=== PATIENT | male | born 1945 | race Caucasian/White ===

== ENCOUNTER → 2018-03-14 11:17 | Outpatient (CLI) | payer MEDICARE, OTHER, SELFPAY ==
--- NOTE | 2018-03-14 11:47 | RAD_ITS ---
STUDY: X-RAY - ABDOMEN/PELVIS REASON FOR EXAM: Male, 72 years old. Pain history of stones TECHNIQUE: Two AP supine views of the abdomen and pelvis. COMPARISON: March 14, 2018 CT scan abdomen and pelvis September 05, 2013 KUB FINDINGS: The lung bases are mostly out of the [id number]. There is a moderate amount of colonic fecal material. There is no demonstrated free abdominal air. There are multiple stones within the left kidney. There are multiple stones in the right kidney. The partially distended appearance of the bladder. Normal soft tissue structures. There are diffuse degenerative changes of the visualized lumbar spine. RAD/Abdomen Single View IMPRESSION: Numerous stones in the left greater than right kidney. The stones appear to be similar in number but greater in size than the prior study September 05, 2013. There appear to be greater stones in the right kidney than on prior allowing for the overlying stool in the colon. Electronically Signed: Lynn Govea MD at 16:53 EDT Tel , Service support ,
[2018-03-14 12:26] LABS: PSA,Total - Annual Screen 4.67 ng/mL (0.00-4.00)
== END ==
PROVIDERS: Family Provider Family Medicine; PCP Family Medicine; Visit Provider Urology
DX: R10.9 Unspecified abdominal pain (principal); Z87.442 Personal history of urinary calculi; Z12.5 Encounter for screening for malignant neoplasm of prostate
CPT/HCPCS: 36415; 74018; 84153; G0103

== ENCOUNTER → 2018-03-14 12:27 | Outpatient (CLI) | payer MEDICARE, OTHER, SELFPAY ==
--- NOTE | 2018-03-14 12:32 | CT_ITS ---
STUDY: CT ABDOMEN AND PELVIS WITHOUT CONTRAST REASON FOR EXAM: Male, 72 years old. Right-sided abdomen pain x2 weeks. History of kidney stones with prior lithotripsy. RADIATION DOSAGE (If Supplied By Facility): CTDIvol = ( 6.66 ) mGy, DLP = ( 286.76 ) mGycm TECHNIQUE: Transaxial images were obtained from the dome of the diaphragm to the symphysis pubis without oral contrast, and without intravenous contrast. Sagittal and coronal images were reconstructed. Individualized dose optimization techniques were used for this CT. COMPARISON: Report only of CT of the abdomen and pelvis obtained August 26, 2012. FINDINGS: The visualized lung bases are remarkable only for mild bibasilar pleural-parenchymal fibrosis. The visualized portions of the heart are within normal limits. There are 2 numerous to count hypodensities throughout the liver. The largest is in the left hepatic lobe measuring approximately 1.4 cm in maximum dimension. Normal gallbladder and extrahepatic biliary system. Normal spleen. Normal pancreas. Normal bilateral adrenal glands. There are multiple calculi within the right renal collecting system. The largest measures 2.5 mm in maximum dimension on sequence 1002, image 61. There is a 6.4 x 4.4 mm calculi within the distal third right ureter seen best on sequence 1002, image 107. Multiple collecting system calculi are seen throughout the left kidney. The largest measures 7.1 cm in maximum dimension. There is a 5.2 cm ovoid low dense focus involving extending from the left renal midpole measuring water density. Normal visualized stomach. Normal small intestine. A few scattered uncomplicated diverticula are identified throughout the colon. There is non-visualization of the appendix. Normal abdominal aorta except for calcified plaque throughout the aortoiliac system. Normal inferior vena cava. Normal retroperitoneum. Normal urinary bladder. Normal abdominal wall. There is no acute osseous abnormality. There is no suspicious lytic or blastic osseous pathology. Diffuse spinal degenerative changes are evident. CT/Abdomen/Pelvis without Cont IMPRESSION: Bilateral nephrolithiasis. Moderate to high-grade obstruction of the distal third right ureter with a 6.4 x 4.4 mm calculi. There is moderate resultant right hydroureter. There is no hydronephrosis. Left renal cysts. Atherosclerotic peripheral vascular disease. Diverticulosis without evident diverticulitis. Too Numerous to count hepatic cysts versus small hemangiomas. Visualized lung bases with mild bibasilar pleural-parenchymal fibrosis. Electronically Signed: David Erwin MD at 14:06 EDT , Service support ,
== END ==
PROVIDERS: Family Provider Family Medicine; PCP Family Medicine; Visit Provider Urology
DX: N20.0 Calculus of kidney (principal); R10.9 Unspecified abdominal pain; Z87.442 Personal history of urinary calculi; Z12.5 Encounter for screening for malignant neoplasm of prostate
CPT/HCPCS: 36415; 74018; 74176; 84153; G0103

== ENCOUNTER 2018-03-18 13:34 | Day surgery (SDC) | payer MEDICARE, OTHER, SELFPAY ==
[2018-03-18 14:00] VITALS: BP 120/75; PULSE 67; RESP 16; TEMP 36.7; O2SAT 97; BMI 21.2
--- NOTE | 2018-03-18 15:44 | DCINST_ITS ---
Discharge Diet: Light diet - advance as tolerated Discharge Activity: Return to Normal Activity, May not drive while taking narcotic pain medications. Instructions: Treating Kidney Stones: Ureteroscopic Stone Removal Allergies/Adverse Reactions: Allergies No Known Allergies Allergy (Verified 03/15/18 09:51) Medications to take at Discharge Aspirin 81 mg PO DAILY 03/15/18 Cinnamon Bark [Cinnamon] 500 mg PO DAILY 03/15/18 Lisinopril [Zestril] 2.5 mg PO DAILY 03/15/18 Metoprolol Tartrate 25 mg PO DAILY 03/15/18 Saw [place] 400 mg PO DAILY 03/15/18 Tamsulosin HCl [Flomax] 0.4 mg PO DAILY 03/15/18 Vitamin B Complex 3 each PO DAILY 03/15/18 Primary Care Physician: George Angulo MD [Primary Care Provider] - Please Follow Up With: Bryn Blackwell MD When: WednesdayMarch 23 at 10:30 am, no xray needed, to remove stent
[2018-03-18 16:32] VITALS: BP 120/75; BP 124/72; PULSE 90; RESP 16; TEMP 36.2; O2SAT 98
--- NOTE | 2018-03-18 16:32 | OP.PCM_ITS ---
Report of Operation Date of Procedure: 03/18/18 Pre-Operative Diagnosis: Right ureteral calculi Post-Operative Diagnosis: Same Surgery/Procedure Performed:: Cystoscopy, balloon dilation of the right ureter, right retrograde, right ureteroscopy laser of stone and stent placement. Description of Surgical Findings:: 72-year-old male who has a stone in the distal right ureter taken today to surgery for removal of the stone and laser and stent placement. 72-year-old is taken to the operating room after smooth induction of general anesthesia he was placed supine on the table the legs in stirrups. the urethra penis and testicles were prepped and draped in usual sterile fashion. I went into the bladder with a 21 Upper Sorbian rigid cystourethroscope the entire length of the urethra is normal the prostatic urethra is normal the sphincter was normal prostate slightly enlarged small median lobe small bilateral hypertrophy inside the bladder mild trabeculation no tumors or stones recognized. left and right ureteral orifice are normal. I cannulated the right ureteral orifice with a Glidewire and advanced a wire up could feel the wire hit the stone and go past it I then advanced the balloon dilator balloon dilated the distal ureter with a 15 Upper Sorbian by 10 cm balloon dilator. after dilating the distal ureter then I went into the ureter with the flexible ureteroscope over the wire pulled the wire out and then encountered the stone in the mid ureter and started lasering the stone the stone. the stone was fairly impacted lots of inflammation the chen of the ureter was able to laser the stone free and the stone fragments passed down as the stone fragments came out of the ureter I did go back in the ureter with the flexible ureteroscope was able to then go back up lasered some more stones and then was able to get air past the area of inflammation where the stone was stuck. got into the more proximal ureter lasered some more stones there when all the way up to the kidney inspected the upper pole midpole lower pole the kidney no other fragments are seen work my way down the ureter past the area of severe inflammation of all the stones the past worked my way down the ureter and then slowly lasered some more tiny fragments and then worked my way out and all the stones and passed into the bladder. Put a ureteral catheter up the right ureter did a right retrograde pyelogram and then put a wire up in the right side and then over the wire place a stent seen on image and then the stent was in good position from the kidney to the bladder and left the string and the stent for extraction will extract the stent next week. Patient's anesthetic was being reversed and he will go home with antibiotics and pain medicine. Type of Anesthesia:: General Drains: stent right side - Admit VTE Documentation VTE Present on Admission: No VTE Mechan Device Prophylaxis: SCD's VTE Pharm Prophylaxis ordered?: No Reason prophylaxis not ordered:: Treatment Not Indicated
[2018-03-18 16:45] VITALS: BP 120/75; BP 131/89; PULSE 88; RESP 16; O2SAT 100
[2018-03-18 16:56] VITALS: BP 120/75; BP 122/75; PULSE 85; RESP 16; TEMP 36.1; O2SAT 97
[2018-03-18 17:32] VITALS: BP 120/75
== END 2018-03-18 17:43 | disposition home or self-care (01) ==
LOC: SDC 13:34 → AC 13:35
PROVIDERS: Family Provider Family Medicine; PCP Family Medicine; Visit Provider Urology
PROC: 0TJ98ZZ Inspection of Ureter, Via Natural or Artificial Opening Endoscopic (ICD-10-PCS; CPT 52352; principal; 2018-03-18 15:10)
DX: N20.1 Calculus of ureter (principal); N40.1 Benign prostatic hyperplasia with lower urinary tract symptoms; R31.21 Asymptomatic microscopic hematuria; I10 Essential (primary) hypertension; K58.9 Irritable bowel syndrome, unspecified; Z79.82 Long term (current) use of aspirin; Z79.899 Other long term (current) drug therapy; Z87.442 Personal history of urinary calculi; Z86.718 Personal history of other venous thrombosis and embolism
CPT/HCPCS: 52356; 76000; J7120; C1726; C1769; C2617

== ENCOUNTER 2018-04-25 14:15 | Inpatient (IN) | payer MEDICARE, OTHER, SELFPAY ==
--- NOTE | 2018-04-25 14:15 | DT_ITS ---
This patient was seen during an EMR downtime April 25, 2018 - May 02, 2018. This patient may have a combination of paper and electronic documentation or all paper documentation. All documentation is viewable within the e-chart portion of [facility] for each patient visit.
--- NOTE | 2018-04-25 15:15 | CT_ITS ---
STUDY: CT ABDOMEN AND PELVIS WITHOUT CONTRAST REASON FOR EXAM: Male, 72 years old. Flank pain RADIATION DOSAGE (If Supplied By Facility): CTDIvol = ( 10.48 ) mGy, DLP = ( 498.13 ) mGycm TECHNIQUE: Transaxial images were obtained from the dome of the diaphragm to the symphysis pubis without oral contrast, and without intravenous contrast. Sagittal and coronal images were reconstructed. Individualized dose optimization techniques were used for this CT. COMPARISON: None. FINDINGS: The visualized lung bases are unremarkable. The visualized portions of the heart are within normal limits. Liver is unremarkable aside from scattered subcentimeter simple cysts. Normal gallbladder and extrahepatic biliary system. Normal spleen. Normal pancreas. Normal bilateral adrenal glands. There are punctate nonobstructing cortical medullary junction stones in the right kidney along with a 2 cm cyst in the lower pole. Left kidney is enlarged, demonstrates multiple scattered cortical medullary junction calcifications as well as scattered simple cysts, largest in the lower pole measures 5 cm. There is hydronephrosis and hydroureter with a minimal amount of perinephric and periureteral inflammatory stranding. Findings due to 2 separate stones in the proximal left ureter, larger measures 6 mm, smaller 4 mm. Normal visualized stomach. Normal small intestine. There are multiple colonic diverticula consistent with diverticulosis. There is non-visualization of the appendix. Normal abdominal aorta. Normal inferior vena cava. Normal retroperitoneum. Normal urinary bladder. There is prostate enlargement which measures 5.5 x 5.4 x 4.4 cm. Normal abdominal wall. There are diffuse degenerative changes of the visualized lumbar spine. CT/Abdomen/Pelvis without Cont IMPRESSION: 2 separate calcifications noted within the proximal left ureter, larger measures 5 mm, smaller 4 mm. These are causing hydronephrosis, hydroureter, perinephric and periureteral inflammatory stranding. Bilateral nonobstructing nephrolithiasis The lateral simple renal cysts Enlarged prostate Scattered subcentimeter hepatic cysts Electronically Signed: Jori Guevara MD at 17:18 EDT , Service support ,
--- NOTE | 2018-04-26 04:40 | RAD_ITS ---
STUDY: X-RAY - ABDOMEN/PELVIS REASON FOR EXAM: Male, 72 years old. Left-sided kidney stone TECHNIQUE: Two AP supine views of the abdomen and pelvis. This study is dated April 26, 2018 and presented for interpretation May 02, 2018 COMPARISON: April 25, 2018 CT scan abdomen and pelvis FINDINGS: The lung bases are out of the [id number]. There is an unremarkable bowel gas pattern. There is no demonstrated free abdominal air. There are multiple stones in the left kidney the largest of which measures 6.5 mm in the lower pole. Overlying the left psoas muscle at the level left side L3 there is a 5.4 mm stone. This likely corresponds to the stone and/or stones that were seen on the April 25, 2018 CT scan of the abdomen and pelvis. There are phleboliths suggested in the pelvis. There are multiple right side punctate renal stones largest of which measures 2 mm. Normal soft tissue structures. There are diffuse degenerative changes of the visualized lumbar spine. RAD/Abdomen Single View (Portable) IMPRESSION: Multiple bilateral renal stones. Left ureteral stone at the level of left-sided L3 overlying the psoas muscle measuring 5.4 mm. Electronically Signed: Lynn Govea MD at 22:15 EDT Tel , Service support ,
--- NOTE | 2018-04-27 11:56 | EKG12_ITS ---
Test Reason : AM EKG Blood Pressure : / mmHG Vent. Rate : 071 BPM Atrial Rate : 071 BPM P-R Int : 134 ms QRS Dur : 084 ms QT Int : 358 ms P-R-T Axes : 062 007 060 degrees QTc Int : 389 ms Normal sinus rhythm Septal infarct , age undetermined Abnormal ECG Confirmed by SADE ALFARO, SHOSHANA ([id number]), index editor CONSUELO BRADLEY ([id number]) on 05/06/2018 1:58:14 PM Referred By: Confirmed By:SHOSHANA STUART MD
[2018-04-28 12:27] LABS: Anion Gap 12 (5-15); BUN 25 mg/dL (7-18); BUN/Creat Ratio 15.5 RATIO (10-20); Calcium,Total 9.1 mg/dL (8.5-10.1); Chloride 105 mmol/L (98-107); Creatinine, Serum 1.61 mg/dL (0.70-1.30); EST Glomerular Filtration Rate 45 mL/min (>60); Est Glom Filt Rate - Afr Amer 55 mL/min (>60); Glucose 166 mg/dL (74-106); Potassium 4.3 mmol/L (3.5-5.1); Sodium Level 138 mmol/L (136-145)
[2018-04-29 10:50] LABS: Hemoglobin 14.2 g/dl (13.0-16.5); Mean Corp Hgb Conc 33.8 g/gl (32-36); Mean Corpuscular Hgb 31.6 pg (27.0-32.0); Mean Corpuscular Volume 93.5 fL (80-94); Mean Platelet Vol. 10.8 fl (6.2-12.0); Platelet Count 213 K/mm3 (150-450); RBC Distribution Width CV 12.9 % (11.6-14.6); Red Blood Count 4.49 M/mm3 (4.6-6.2); Scan Indicated on CBC? Y/N NO
== END 2018-04-27 14:41 | disposition home or self-care (01) | DRG 670 ==
PROVIDERS: Urology; Admitting Provider Urology; Family Provider Family Medicine; PCP Family Medicine; Visit Provider Urology
PROC: 0TC78ZZ Extirpation of Matter from Left Ureter, Via Natural or Artificial Opening Endoscopic (ICD-10-PCS; CPT 50590; principal; 2018-04-27 15:40)
DX: N20.1 Calculus of ureter (principal); N40.0 Benign prostatic hyperplasia without lower urinary tract symptoms; N23 Unspecified renal colic; I10 Essential (primary) hypertension; G62.9 Polyneuropathy, unspecified; H91.90 Unspecified hearing loss, unspecified ear; Z87.442 Personal history of urinary calculi
CPT/HCPCS: 36415; 74018; 74176; 80048; 85027; 93005; J7030; A4216; C1769; C2617; J0744; J2405

== ENCOUNTER → 2018-05-02 11:59 | Outpatient (CLI) | payer MEDICARE, OTHER, SELFPAY ==
--- NOTE | 2018-05-02 11:59 | DT_ITS ---
This patient was seen during an EMR downtime April 25, 2018 - May 02, 2018. This patient may have a combination of paper and electronic documentation or all paper documentation. All documentation is viewable within the e-chart portion of [facility] for each patient visit.
--- NOTE | 2018-05-02 12:29 | RAD_ITS ---
STUDY: X-RAY - ABDOMEN/PELVIS REASON FOR EXAM: Male, 72 years old. Left side kidney stone. Stent. TECHNIQUE: Two AP supine views of the abdomen and pelvis. COMPARISON: Abdomen, April 26, 2018. FINDINGS: Normal visualized lung bases. There is an unremarkable bowel gas pattern. There is no demonstrated free abdominal air. The visualized liver, spleen and kidneys are grossly normal in size and morphology. There is a left ureteral stent. There are calcifications throughout the left kidney. The largest cluster measures 2.2 x 0.6 cm and lies in the lower pole. Calcifications are also seen along the course of the stent just lateral to the L4 vertebral body. There is no calcifications overlying the right kidney. Normal soft tissue structures. There are diffuse degenerative changes of the visualized lumbar spine. RAD/Abdomen Single View IMPRESSION: 1. Left ureteral stent with left ureteral calculus. 2. Stable left renal calculi. Electronically Signed: Nik Lyons DO at 16:22 EDT Tel [phone], Service support ,
== END ==
PROVIDERS: Family Provider Family Medicine; PCP Family Medicine; Visit Provider Urology
DX: N20.0 Calculus of kidney (principal)
CPT/HCPCS: 74018

== ENCOUNTER → 2018-05-16 12:51 | Outpatient (CLI) | payer MEDICARE, OTHER, SELFPAY ==
--- NOTE | 2018-05-16 12:54 | RAD_ITS ---
STUDY: X-RAY - ABDOMEN/PELVIS REASON FOR EXAM: Male, 72 years old. Left-sided kidney stone. Checkup. TECHNIQUE: Two AP supine views of the abdomen and pelvis. COMPARISON: May 02, 2018. FINDINGS: Normal visualized lung bases. There is an unremarkable bowel gas pattern. There is no demonstrated free abdominal air. The visualized liver, spleen and kidneys are grossly normal in size and morphology. The left ureteral stent is no longer present. There are calcifications overlying the left kidney. The largest, in the lower pole measures 7 mm. Normal soft tissue structures. There are diffuse degenerative changes of the visualized lumbar spine. RAD/Abdomen Single View IMPRESSION: 1. Absence of the left ureteral stent seen on the prior study. 2. Multiple left renal calculi. These appear stable. Electronically Signed: Nik Lyons DO at 8:48 EDT Tel [phone], Service support ,
== END ==
PROVIDERS: Family Provider Family Medicine; PCP Family Medicine; Visit Provider Urology
DX: N20.0 Calculus of kidney (principal)
CPT/HCPCS: 74018

== ENCOUNTER → 2018-11-01 09:20 | Outpatient (CLI) | payer MEDICARE, OTHER, SELFPAY ==
--- NOTE | 2018-11-01 09:47 | RAD_ITS ---
STUDY: X-RAY - ABDOMEN/PELVIS REASON FOR EXAM: Male, 73 years old. Right flank pain. History of bilateral kidney stones. TECHNIQUE: Single AP view of the abdomen / pelvis. COMPARISON: 2 AP views of the abdomen and pelvis May 16, 2018; noncontrast CT abdomen pelvis April 25, 2018. FINDINGS: Non-visualized lung bases. There is an unremarkable bowel gas pattern. There is no demonstrated free abdominal air. Numerous small stones project along the periphery of the mid to lower left renal shadow. A few small calcifications also project over the lower pole of the right renal shadow, partially obscured by gas and fecal material in the bowel. The visualized liver and spleen are grossly normal in size and morphology. There are calcified phleboliths in the pelvis. There are stable degenerative changes of the visualized lumbar spine. RAD/Abdomen Single View IMPRESSION: Bilateral nephrolithiasis again noted. Nonspecific bowel gas pattern. Electronically Signed: Jori Wilkinson MD at 19:58 EST , Service support ,
--- OUTSIDE RECORDS SUMMARY | 2018-12-18 08:33 | XMS RPT_ITS ---
:1945 Author Organization [place] Support Name Relationship Address Phone [employer] Unavailable [address] + [place] [address] TERESA LOVING Unavailable [address] + [address] [place] [address] NOT GIVEN Unavailable Unavailable Unavailable TERESA LOVING Unavailable [address] + [place] [address] TERESA LOVING Unavailable [address] [place] [address] [employer] Unavailable [address] + [place] [address] TERESA LOVING Unavailable [address] + [address] [place] [address] [employer] Unavailable [address] + [place] [address] TERESA LOVING Unavailable [address] + [address] [place] [address] [employer] Unavailable [address] + [place] [address] TERESA LOVING Unavailable [address] + [address] [place] [address] [employer] Unavailable [address] + [place] [address] TERESA LOVING Unavailable [address] + [address] [place] [address] [employer] Unavailable [address] + [place] [address] TERESA LOVING Unavailable [address] + [address] [place] [address] [employer] Unavailable [address] + [place] [address] LOVING, TERESA Unavailable [address] + [address] [place] [address] [employer] Unavailable [address] + [place] [address] CRISTINA LOVINGKI Unavailable [address] + [place] [address] Care Team Providers Name Role Phone MD GEORGE GAXIOLA Attending Unavailable LV, SAIDA Trevino Admitting Unavailable LV, SAIDA Trevino Attending Unavailable LV, SAIDA Trevino Primary Care Unavailable Rosalva, Bryn Gaston Attending Unavailable Rosalva, Bryn Gaston Referring Unavailable Khalida, George Primary Care Unavailable Rosalva, Bryn Gaston Attending Unavailable Rosalva, Gen Referring Unavailable Khalida, George Primary Care Unavailable Rosalva, Bryn Gaston Attending Unavailable Rosalva, Gen Referring Unavailable Khalida, George Primary Care Unavailable Rosalva, Bryn Gaston Attending Unavailable Rosalva, Gen Referring Unavailable Khalida, George Primary Care Unavailable Rosalva, Gen Admitting Unavailable Rosalva, Bryn Gaston Attending Unavailable Khalida, Warren Primary Care Unavailable Rosalva, Bryn Gaston Attending Unavailable Rosalva, Gen Referring Unavailable Khalida, Warren Primary Care Unavailable Rosalva, Bryn Gaston Attending Unavailable Rosalva, Gen Referring Unavailable Khalida, Warren Primary Care Unavailable Moodispadavid, Juan Attending Unavailable White, Katerina Referring Unavailable PROBLEMS PROBLEMS DATE TYPE CONDITION / CODE ATTENDING STATUS SOURCE Unknown N20.0 - Calculus of Bryn Blackwell Active [place] 8 kidney / N20.0(ICD-10) [facility] Repository Principle Noninfective LV, 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 Trevino [facility] colitis, unspecified / Hospital K529(ICD-10) Repository Unknown R94.31 - Abnormal Moodispaw, Active [place] 8 electrocardiogram [facility] [ECG] [EKG] / Hospital R94.31(ICD-10) Repository Unknown I10 - Essential Moodispaw, Active [place] 8 (primary) hypertension [facility] / I10(ICD-10) Hospital Repository Unknown Z87.442 - Personal Bryn Blackwell Active [place] 8 history of urinary Alek [facility] calculi / Hospital Z87.442(ICD-10) Repository Admitting HyperlipidemiaKHALIDA MD Active [facility] 8 Diagnosis unspecified / GEORGE Hart E78.5(ICD-10) Repository PROCEDURES PROCEDURES No Procedure Records FoundRESULTS RESULTS ABDOMEN SINGLE VIEW Observed: 11/01/2018 Status: F Source: [place] 9:25 AM [facility] Imaging Services [address] [place] [address] Abdomen Single View MR#: [id number] Acct: [id number] Name: JUAN LOVING Rep #: [id number] : 1945 M 73 From: Oz Wilkinson MD PCP: George Gaxiola MD Status: REG CLI Study: Abdomen Single View Date of Exam: 11/01/18 Exam# [id number] Ordering Dr: Bryn Blackwell MD STUDY: X-RAY - ABDOMEN/PELVIS REASON FOR EXAM: Male, 73 years old. Right flank pain. History of bilateral kidney stones. TECHNIQUE: Single AP view of the abdomen / pelvis. COMPARISON: 2 AP views of the abdomen and pelvis May 16, 2018; noncontrast CT abdomen pelvis April 25, 2018. FINDINGS: Non-visualized lung bases. There is an unremarkable bowel gas pattern. There is no demonstrated free abdominal air. Numerous small stones project along the periphery of the mid to lower left renal shadow. A few small calcifications also project over the lower pole of the right renal shadow, partially obscured by gas and fecal material in the bowel. The visualized liver and spleen are grossly normal in size and morphology. There are calcified phleboliths in the pelvis. There are stable degenerative changes of the visualized lumbar spine. RAD/Abdomen Single View IMPRESSION: Bilateral nephrolithiasis again noted. Nonspecific bowel gas pattern. Electronically Signed: Jori Wilkinson MD at 19:58 EST , Service support , CC: Bryn Blackwell MD; George Gaxiola MD Security Operations Analyst: Signed ABDOMEN SINGLE VIEW Observed: 05/16/2018 Status: F Source: [place] 12:54 PM [facility]POSITORY [facility] Imaging Services [address] [place] [address] Abdomen Single View MR#: [id number] Acct: [id number] Name: JUAN LOVING Rep #: [id number] : 1945 M 72 From: Nik Lyons DO PCP: George Gaxiola MD Status: REG CLI Study: Abdomen Single View Date of Exam: 05/16/18 Exam# [id number] Ordering Dr: Bryn Blackwell MD STUDY: X-RAY - ABDOMEN/PELVIS REASON FOR EXAM: Male, 72 years old. Left-sided kidney stone. Checkup. TECHNIQUE: Two AP supine views of the abdomen and pelvis. COMPARISON: May 02, 2018. FINDINGS: Normal visualized lung bases. There is an unremarkable bowel gas pattern. There is no demonstrated free abdominal air. The visualized liver, spleen and kidneys are grossly normal in size and morphology. The left ureteral stent is no longer present. There are calcifications overlying the left kidney. The largest, in the lower pole measures 7 mm. Normal soft tissue structures. There are diffuse degenerative changes of the visualized lumbar spine. RAD/Abdomen Single View IMPRESSION: 1. Absence of the left ureteral stent seen on the prior study. 2. Multiple left renal calculi. These appear stable. Electronically Signed: Nik Lyons DO at 8:48 EDT Tel [phone], Service support , CC: Bryn Blackwell MD; George Gaxiola MD Security Operations Analyst: Signed DOWNTIME REPORT Observed: 05/12/2018 Status: F Source: [place] 2:25 PM [facility] Medical Records Department [address] [place] [address] Downtime Report MR#: [id number] Acct: [id number] Name: JUAN LOVING Rep #: [id number] : 1945 72 From: Jamal Bradley PCP: George Gaxiola MD Status: REG CLI This patient was seen during an EMR downtime April 25, 2018 - May 02, 2018. This patient may have a combination of paper and electronic documentation or all paper documentation. All documentation is viewable within the e-chart portion of [employer] for each patient visit. DOWNTIME REPORT Observed: 05/11/2018 Status: F Source: [place] 2:05 PM [facility] Medical Records Department [address] [place] [address] Downtime Report MR#: [id number] Acct: [id number] Name: JUAN LOVING Rep #: [id number] : 1945 72 From: Jamal Bradley MD PCP: George Gaxiola MD Status: DIS IN This patient was seen during an EMR downtime April 25, 2018 - May 02, 2018. This patient may have a combination of paper and electronic documentation or all paper documentation. All documentation is viewable within the e-chart portion of [employer] for each patient visit. 12 LEAD ELECTROCARDIOGRAM Observed: 05/09/2018 Status: F Source: [place] 8:56 AM [facility] Cardiovascular Services [address] [place] [address] 12 Lead EKG 04/27/18 0531 MR#: [id number] Acct: [id number] Name: JUAN LOVING Rep #: [id number] : 1945 72 From: Juan Stuart MD Attending Dr: Bryn Blackwell MD Status: DIS IN Ordering Dr: Bryn Blackwell MD Date: 04/27/18 Location: [facility] Sex: M C Admitted: 04/25/18 Test Reason : AM EKG Blood Pressure : / mmHG Vent. Rate : 071 BPM Atrial Rate : 071 BPM P-R Int : 134 ms QRS Dur : 084 ms QT Int : 358 ms P-R-T Axes : 062 007 060 degrees QTc Int : 389 ms Normal sinus rhythm Septal infarct , age undetermined Abnormal ECG Confirmed by JUAN STUART MD ([id number]), acquisition editor CONSUELO BRADLEY ([id number]) on 05/06/2018 1:58:14 PM Referred By: Confirmed By:JUAN STUART MD 05/06/18 1358 Date Juan Stuart MD CC: Bryn Blackwell MD; George Gaxiola MD Signed ABDOMEN SINGLE VIEW Observed: 05/02/2018 Status: F Source: [place] 12:29 PM [facility] REPOSITORY [facility] Imaging Services [address] [place] [address] Abdomen Single View MR#: [id number] Acct: [id number] Name: JUAN LOVING Rep #: [id number] : 1945 M 72 From: Nik Lyons DO PCP: George Gaxiola MD Status: REG CLI Study: Abdomen Single View Date of Exam: 05/02/18 Exam# [id number] Ordering Dr: Bryn Blackwell MD STUDY: X-RAY - ABDOMEN/PELVIS REASON FOR EXAM: Male, 72 years old. Left side kidney stone. Stent. TECHNIQUE: Two AP supine views of the abdomen and pelvis. COMPARISON: Abdomen, April 26, 2018. FINDINGS: Normal visualized lung bases. There is an unremarkable bowel gas pattern. There is no demonstrated free abdominal air. The visualized liver, spleen and kidneys are grossly normal in size and morphology. There is a left ureteral stent. There are calcifications throughout the left kidney. The largest cluster measures 2.2 x 0.6 cm and lies in the lower pole. Calcifications are also seen along the course of the stent just lateral to the L4 vertebral body. There is no calcifications overlying the right kidney. Normal soft tissue structures. There are diffuse degenerative changes of the visualized lumbar spine. RAD/Abdomen Single View IMPRESSION: 1. Left ureteral stent with left ureteral calculus. 2. Stable left renal calculi. Electronically Signed: Nik Lyons DO at 16:22 EDT Tel [phone], Service support , CC: Bryn Blackwell MD; George Gaxiola MD Security Operations Analyst: Signed ABDOMEN/PELVIS WITHOUT Observed: 04/28/2018 Status: F Source: [place] CONT 3:37 PM [facility] Imaging Services [address] [facility] [place] [address] Abdomen/Pelvis without Cont MR#: [id number] Acct: [id number] Name: LOVINGJUAN Rep #: [id number] : 1945 M 72 From: Oz Guevara MD PCP: George Gaxiola MD Status: DIS IN Study: Abdomen/Pelvis without Cont Date of Exam: 04/25/18 Exam# [id number] Ordering Dr: Juan Barbosa MD STUDY: CT ABDOMEN AND PELVIS WITHOUT CONTRAST REASON FOR EXAM: Male, 72 years old. Flank pain RADIATION DOSAGE (If Supplied By Facility): CTDIvol = ( 10.48 ) mGy, DLP = ( 498.13 ) mGycm TECHNIQUE: Transaxial images were obtained from the dome of the diaphragm to the symphysis pubis without oral contrast, and without intravenous contrast. Sagittal and coronal images were reconstructed. Individualized dose optimization techniques were used for this CT. COMPARISON: None. FINDINGS: The visualized lung bases are unremarkable. The visualized portions of the heart are within normal limits. Liver is unremarkable aside from scattered subcentimeter simple cysts. Normal gallbladder and extrahepatic biliary system. Normal spleen. Normal pancreas. Normal bilateral adrenal glands. There are punctate nonobstructing cortical medullary junction stones in the right kidney along with a 2 cm cyst in the lower pole. Left kidney is enlarged, demonstrates multiple scattered cortical medullary junction calcifications as well as scattered simple cysts, largest in the lower pole measures 5 cm. There is hydronephrosis and hydroureter with a minimal amount of perinephric and periureteral inflammatory stranding. Findings due to 2 separate stones in the proximal left ureter, larger measures 6 mm, smaller 4 mm. Normal visualized stomach. Normal small intestine. There are multiple colonic diverticula consistent with diverticulosis. There is non-visualization of the appendix. Normal abdominal aorta. Normal inferior vena cava. Normal retroperitoneum. Normal urinary bladder. There is prostate enlargement which measures 5.5 x 5.4 x 4.4 cm. Normal abdominal wall. There are diffuse degenerative changes of the visualized lumbar spine. CT/Abdomen/Pelvis without Cont IMPRESSION: 2 separate calcifications noted within the proximal left ureter, larger measures 5 mm, smaller 4 mm. These are causing hydronephrosis, hydroureter, perinephric and periureteral inflammatory stranding. Bilateral nonobstructing nephrolithiasis The lateral simple renal cysts Enlarged prostate Scattered subcentimeter hepatic cysts Electronically Signed: Jori Guevara MD at 17:18 EDT , Service support , CC: Juan Barbosa MD; George Gaxiola MD Security Operations Analyst: Signed ABDOMEN SINGLE VIEW Observed: 04/28/2018 Status: F Source: [place] (PORTABLE) 2:17 PM [facility] REPOS[facility]ORY [facility] Imaging Services [address] [place] [address] Abdomen Single View (Portable) MR#: [id number] Acct: [id number] Name: LOVINGJUAN Rep #: [id number] : 1945 M 72 From: Lynn Govea MD PCP: George Gaxiola MD Status: DIS IN Study: Abdomen Single View (Portable) Date of Exam: 04/26/18 Exam# [id number] Ordering Dr: Juan Barbosa MD STUDY: X-RAY - ABDOMEN/PELVIS REASON FOR EXAM: Male, 72 years old. Left-sided kidney stone TECHNIQUE: Two AP supine views of the abdomen and pelvis. This study is dated April 26, 2018 and presented for interpretation May 02, 2018 COMPARISON: April 25, 2018 CT scan abdomen and pelvis FINDINGS: The lung bases are out of the zqjoq-lu-xowk. There is an unremarkable bowel gas pattern. There is no demonstrated free abdominal air. There are multiple stones in the left kidney the largest of which measures 6.5 mm in the lower pole. Overlying the left psoas muscle at the level left side L3 there is a 5.4 mm stone. This likely corresponds to the stone and/or stones that were seen on the April 25, 2018 CT scan of the abdomen and pelvis. There are phleboliths suggested in the pelvis. There are multiple right side punctate renal stones largest of which measures 2 mm. Normal soft tissue structures. There are diffuse degenerative changes of the visualized lumbar spine. RAD/Abdomen Single View (Portable) IMPRESSION: Multiple bilateral renal stones. Left ureteral stone at the level of left-sided L3 overlying the psoas muscle measuring 5.4 mm. Electronically Signed: Lynn Govea MD at 22:15 EDT Tel , Service support , CC: Juan Barbosa MD; George Gaxiola MD Security Operations Analyst: Signed BASIC METABOLIC Collected: 04/25/2018 Status: F Source: [place] PROFILE (BMP) 3:15 PM [facility] REPOSITORY Order Comment: RESULT(S) PREVIOUSLY REPORTED ON MANUAL REQUISITION DURING DOWNTIME. TYPE CODE TESTS RESULT OUT OF RANGE REFERENCE UNITS LAB L501.0100 74-106 mg/dL High GLU 166 Result Comment: Fasting Glucose result greater than or equal to 126 mg/dL suggests DIABETES MELLITUS per A.D.A. criteria. Please note revised GLUCOSE reference range effective 2017. LAB L501.1000 7-18 mg/dL High BUN 25 LAB L501.1100 0.70-1.30 mg/dL High CREAT,SERUM 1.61 Result Comment: The validity of the calculated GFR AND GFRAA in patients over 70 years has not been determined. Clinical correlation is essential. LAB L501.1110 >60 mL/min Low EST GFR 45 LAB L501.1115 >60 mL/min Low EST GFR - AA 55 LAB L501.1300 10-20 RATIO Normal BUN/CRE 15.5 LAB L501.2200 8.5-10.1 mg/dL Normal CA 9.1 LAB L501.5300 136-145 mmol/L Normal NA 138 LAB L501.5600 3.5-5.1 mmol/L Normal K 4.3 LAB L501.5900 98-107 mmol/L Normal CL 105 LAB L501.6100 21.0-32.0 mmol/L Normal CO2 21.0 LAB L501.6200 5-15 Normal GAP 12 Performed By: #### L500.2500 #### [facility] [address] [place], [address] CBC-COMPLETE BLOOD CNT Collected: 04/25/2018 Status: F Source: [place] NO DIFF 2:40 AM [facility] REPOSITORY Order Comment: TESTED AT [facility] RESULT(S) PREVIOUSLY REPORTED ON MANUAL REQUISITION DURING DOWNTIME. . TYPE CODE TESTS RESULT OUT OF RANGE REFERENCE UNITS LAB L100.1000 4.4-11.0 K/mm3 High WBC 14.0 LAB L100.1200 4.6-6.2 M/mm3 Low RBC 4.49 LAB L100.1300 13.0-16.5 g/dl Normal HGB 14.2 LAB L100.1400 40-54 % Normal HCT 42.0 LAB L100.1500 80-94 fL Normal MCV 93.5 LAB L100.1600 27.0-32.0 pg Normal MCH 31.6 LAB L100.1700 32-36 g/gl Normal MCHC 33.8 LAB L100.1810 11.6-14.6 % Normal RDW CV 12.9 LAB L100.1820 35.1-43.9 fl Normal RDW SD 43.0 LAB L100.1900 150-450 K/mm3 Normal PLT 213 LAB L100.2000 6.2-12.0 fl Normal MPV 10.8 Performed By: #### L100.0500 #### [facility] [address] [place], [address] OPERATIVE REPORT Observed: 03/18/2018 Status: F Source: [place] 4:32 PM [facility] REPOS[facility]ORY [facility] Medical Records Department [address] [place] [address] Operative Report 03/18/18 1625 MR#: [id number] Acct: [id number] Name: JUAN LOVING Rep #: [id number] : 1945 72 From: Bryn Blackwell MD PCP: George Gaxiola MD Status: REG [facility] Y Location: [place] [address] Report of Operation Date of Procedure: 03/18/18 Pre-Operative Diagnosis: Right ureteral calculi Post-Operative Diagnosis: Same Surgery/Procedure Performed:: Cystoscopy, balloon dilation of the right ureter, right retrograde, right ureteroscopy laser of stone and stent placement. Description of Surgical Findings:: 72-year-old male who has a stone in the distal right ureter taken today to surgery for removal of the stone and laser and stent placement. 72-year-old is taken to the operating room after smooth induction of general anesthesia he was placed supine on the table the legs in stirrups. the urethra penis and testicles were prepped and draped in usual sterile fashion. I went into the bladder with a 21 Icelandic rigid cystourethroscope the entire length of the urethra is normal the prostatic urethra is normal the sphincter was normal prostate slightly enlarged small median lobe small bilateral hypertrophy inside the bladder mild trabeculation no tumors or stones recognized. left and right ureteral orifice are normal. I cannulated the right ureteral orifice with a Glidewire and advanced a wire up could feel the wire hit the stone and go past it I then advanced the balloon dilator balloon dilated the distal ureter with a 15 Icelandic by 10 cm balloon dilator. after dilating the distal ureter then I went into the ureter with the flexible ureteroscope over the wire pulled the wire out and then encountered the stone in the mid ureter and started lasering the stone the stone. the stone was fairly impacted lots of inflammation the chen of the ureter was able to laser the stone free and the stone fragments passed down as the stone fragments came out of the ureter I did go back in the ureter with the flexible ureteroscope was able to then go back up lasered some more stones and then was able to get air past the area of inflammation where the stone was stuck. got into the more proximal ureter lasered some more stones there when all the way up to the kidney inspected the upper pole midpole lower pole the kidney no other fragments are seen work my way down the ureter past the area of severe inflammation of all the stones the past worked my way down the ureter and then slowly lasered some more tiny fragments and then worked my way out and all the stones and passed into the bladder. Put a ureteral catheter up the right ureter did a right retrograde pyelogram and then put a wire up in the right side and then over the wire place a stent seen on image and then the stent was in good position from the kidney to the bladder and left the string and the stent for extraction will extract the stent next week. Patient's anesthetic was being reversed and he will go home with antibiotics and pain medicine. Type of Anesthesia:: General Drains: stent right side - Admit VTE Documentation VTE Present on Admission: No VTE Mechan Device Prophylaxis: SCD's VTE Pharm Prophylaxis ordered?: No Reason prophylaxis not ordered:: Treatment Not Indicated 03/18/18 1632 <Electronically signed by Bryn Blackwell MD> Date Bryn Blackwell MD CC: Bryn Blackwell MD; George Gaxiola MD Signed DISCHARGE INSTRUCTION Observed: 03/18/2018 Status: F Source: [place] 3:44 PM [facility] REPOS[facility]ORY [facility] Medical Records Department [address] [place] [address] Instructions for Home/Discharge Instructions 03/18/18 1543 MR#: [id number] Acct: [id number] Name: JUAN LOVING Rep #: [id number] : 1945 72 From: Bryn Blackwell MD PCP: George Gaxiola MD Status: REG [facility] Discharge Diet: Light diet - advance as tolerated Discharge Activity: Return to Normal Activity, May not drive while taking narcotic pain medications. Instructions: Treating Kidney Stones: Ureteroscopic Stone Removal Allergies/Adverse Reactions: Allergies No Known Allergies Allergy (Verified 03/15/18 09:51) Medications to take at Discharge Aspirin 81 mg PO DAILY 03/15/18 Cinnamon Bark [Cinnamon] 500 mg PO DAILY 03/15/18 Lisinopril [Zestril] 2.5 mg PO DAILY 03/15/18 Metoprolol Tartrate 25 mg PO DAILY 03/15/18 Saw [place] 400 mg PO DAILY 03/15/18 Tamsulosin HCl [Flomax] 0.4 mg PO DAILY 03/15/18 Vitamin B Complex 3 each PO DAILY 03/15/18 Primary Care Physician: George Gaxiola MD [Primary Care Provider] - Please Follow Up With: Bryn Blackwell MD When: WednesdayMarch 23 at 10:30 am, no xray needed, to remove stent 03/18/18 1544 <Electronically signed by Bryn Blackwell MD> Date Bryn Blackwell MD CC: George Gaxiola MD ABDOMEN/PELVIS WITHOUT Observed: 03/14/2018 Status: F Source: [place] CONT 12:32 PM [facility] Imaging Services [address] [place] [address] Abdomen/Pelvis without Cont MR#: [id number] Acct: [id number] Name: JUAN LOVING Jon Rep #: [id number] : 1945 M 72 From: David Erwin MD PCP: George Gaxiola MD Status: REG CLI Study: Abdomen/Pelvis without Cont Date of Exam: 03/14/18 Exam# [id number] Ordering Dr: Bryn Blackwell MD STUDY: CT ABDOMEN AND PELVIS WITHOUT CONTRAST REASON FOR EXAM: Male, 72 years old. Right-sided abdomen pain x2 weeks. History of kidney stones with prior lithotripsy. RADIATION DOSAGE (If Supplied By Facility): CTDIvol = ( 6.66 ) mGy, DLP = ( 286.76 ) mGycm TECHNIQUE: Transaxial images were obtained from the dome of the diaphragm to the symphysis pubis without oral contrast, and without intravenous contrast. Sagittal and coronal images were reconstructed. Individualized dose optimization techniques were used for this CT. COMPARISON: Report only of CT of the abdomen and pelvis obtained August 26, 2012. FINDINGS: The visualized lung bases are remarkable only for mild bibasilar pleural-parenchymal fibrosis. The visualized portions of the heart are within normal limits. There are 2 numerous to count hypodensities throughout the liver. The largest is in the left hepatic lobe measuring approximately 1.4 cm in maximum dimension. Normal gallbladder and extrahepatic biliary system. Normal spleen. Normal pancreas. Normal bilateral adrenal glands. There are multiple calculi within the right renal collecting system. The largest measures 2.5 mm in maximum dimension on sequence 1002, image 61. There is a 6.4 x 4.4 mm calculi within the distal third right ureter seen best on sequence 1002, image 107. Multiple collecting system calculi are seen throughout the left kidney. The largest measures 7.1 cm in maximum dimension. There is a 5.2 cm ovoid low dense focus involving extending from the left renal midpole measuring water density. Normal visualized stomach. Normal small intestine. A few scattered uncomplicated diverticula are identified throughout the colon. There is non-visualization of the appendix. Normal abdominal aorta except for calcified plaque throughout the aortoiliac system. Normal inferior vena cava. Normal retroperitoneum. Normal urinary bladder. Normal abdominal wall. There is no acute osseous abnormality. There is no suspicious lytic or blastic osseous pathology. Diffuse spinal degenerative changes are evident. CT/Abdomen/Pelvis without Cont IMPRESSION: Bilateral nephrolithiasis. Moderate to high-grade obstruction of the distal third right ureter with a 6.4 x 4.4 mm calculi. There is moderate resultant right hydroureter. There is no hydronephrosis. Left renal cysts. Atherosclerotic peripheral vascular disease. Diverticulosis without evident diverticulitis. Too Numerous to count hepatic cysts versus small hemangiomas. Visualized lung bases with mild bibasilar pleural-parenchymal fibrosis. Electronically Signed: David Erwin MD at 14:06 EDT , Service support , CC: Bryn Blackwell MD; George Gaxiola MD Security Operations Analyst: Signed ABDOMEN SINGLE VIEW Observed: 03/14/2018 Status: F Source: [place] 11:40 AM [facility] Imaging Services [address] [place] [address] Abdomen Single View MR#: [id number] Acct: [id number] Name: JUAN LOVING Rep #: [id number] : 1945 M 72 From: Lynn Govea MD PCP: George Gaxiola MD Status: REG CLI Study: Abdomen Single View Date of Exam: 03/14/18 Exam# [id number] Ordering Dr: Bryn Blackwell MD STUDY: X-RAY - ABDOMEN/PELVIS REASON FOR EXAM: Male, 72 years old. Pain history of stones TECHNIQUE: Two AP supine views of the abdomen and pelvis. COMPARISON: March 14, 2018 CT scan abdomen and pelvis September 05, 2013 KUB FINDINGS: The lung bases are mostly out of the [id number]. There is a moderate amount of colonic fecal material. There is no demonstrated free abdominal air. There are multiple stones within the left kidney. There are multiple stones in the right kidney. The partially distended appearance of the bladder. Normal soft tissue structures. There are diffuse degenerative changes of the visualized lumbar spine. RAD/Abdomen Single View IMPRESSION: Numerous stones in the left greater than right kidney. The stones appear to be similar in number but greater in size than the prior study September 05, 2013. There appear to be greater stones in the right kidney than on prior allowing for the overlying stool in the colon. Electronically Signed: Lynn Govea MD at 16:53 EDT Tel , Service support , CC: Bryn Blackwell MD; George Gaxiola MD Security Operations Analyst: Signed PSA,TOTAL - ANNUAL Collected: 03/14/2018 Status: F Source: [place] SCREEN 11:33 AM [facility] REPOSITORY TYPE CODE TESTS RESULT OUT OF REFERENCE UNITS RANGE LAB L501.9910 0.00-4.00 ng/mL High PSA,TOT 4.67 SCREEN Result Comment: This test was performed using the TPSA assay method for the Nimia chemistry system. Values obtained with different assay methods cannot be used interchangably. When changing PSA assays in the course of monitoring a patient, additional sequential testing should be carried out to confirm baseline values. Performed By: #### L501.9910 #### [facility] [address] [place], [address] LIPID Collected: 02/07/2018 Status: F Source: [facility] 9:06 AM [facility] REPOSITORY TYPE CODE TESTS RESULT OUT OF REFERENCE UNITS RANGE LAB CHOL(LOINC 50-199 mg/dL ) Cholesterol 150 Result Comment: Cholesterol Reference Interval: Less than 200 Desirable 200-239 Borderline high risk 240 and above High risk LAB TRIG(LOINC) 3-149 mg/dL Triglycerides 122 Result Comment: Triglyceride Reference Interval: Less than 150 Normal 150-199 Borderline high risk 200-499 High risk 500 or higher Very high risk LAB HD(LOINC) 40-59 mg/dL HDL Low Cholesterol 39 Result Comment: HDL Reference Interval: Less than 40 Low - high risk 60 or above Optimal/lowers risk LAB LDL(LOINC) 0-129 mg/dL LDL Cholesterol 87 Result Comment: LDL is a calculated result and requires a 12-hr fast. LDL Reference Interval: Less than 100 Optimal 100-129 Near or above optimal 130-159 Borderline high risk 160-189 High risk 190 and above Very high risk Performed By: #### LIPID #### [facility] [address] [place] [address] ALLERGIES ALLERGIES DATE TYPE / CODE NAME / CODE REACTION SEVERITY SOURCE 03/15/2018 Drug No Known Unknown [place] Allergy/267600825(S [facility] [place] [address] Repository Miscellaneous No Known Moderate [facility] Allergy/538231625(S Allergies ([facility] NOMED [facility]) Modifier) Hospital (Qualifier Repository Value) ENCOUNTERS ENCOUNTERS ADMIT/DISCHARGE ACCOUNT NUMBER ADMITTING ENCOUNTER LOCATION SOURCE CLASS 11/01/2018 [id number] Ambulatory [facility] ding:RAD Repository 08/05/2018 [id number] LV, [facility] Repository 05/16/2018 [id number] [facility] ding:RAD.FUT Repository URE 05/02/2018 [id number] [facility] ding:RAD Repository 04/27/2018/04/27/20 [id number] Ambulatory BMSBuilding: [place] Repository 04/25/2018/04/27/20 [id number] Bryn Blackwell Inpatient [address] ding:PCURoom Repository : [id number]: 1 03/18/2018/03/18/20 [id number] Ambulatory [address] ding:SDC Repository 03/14/2018 [id number] [facility] ding:CT Repository 03/14/2018 [id number] [facility] ding:LAB Repository 02/07/2018/02/12/20 [id number] Ambulatory [address] WBuilding:[facility] Repository PAYERS PAYERS ENCOUNTER GUARANTOR PAYER SUBSCRIBER SOURCE 11/01/2018 JUAN A Primary JUAN A [place] [id number] TR Insurance:MEDICARE PATTERSONDOB: [place] [address] PART A BPolicy Number: [id number] [address] [id number] Repository [address]Wyl: ([phone]) Date:2018-10-31 [phone] () 11/01/2018 Secondary JUAN A [place] Insurance:MEDICAL PATTERSONDOB: [facility] [id number] [facility] Number: Repository [id number] Date:5639-60-63PK [address] [address]DE: 11/01/2018 Tertiary NOT GIVENUNK [place] Insurance:SELF PAY [facility]: Effective Repository Date:2018-10-31 08/05/2018 JUAN A Primary JUAN [place] PATTERSONDOB: Insurance:MEDICARE PATTERSONDOB: [id number] [id number] Number: [address] [place] [address], Repository [id number]: [id number] [place] [address] Date: () 05/16/2018 Juan A Primary Juan A [place] [id number] TR Insurance:MEDICARE PattersonDOB: Community [address] PART A BPolicy Number: [id number] [id number] Repository [address]Gvd: (591) Date:2018-05-12 [phone] (HP) 05/16/2018 Secondary Juan A [place] Insurance:MEDICAL PattersonDOB: [facility] [id number] Hospital Number: Repository [id number] Date:2120-32-71FC[address] [address]XT: 05/16/2018 Tertiary NOT GIVENUNK [place] Insurance:SELF PAY [facility] Number: Effective Repository Date:2018-05-12 05/02/2018 Juan A Primary Juan A [place] [id number] TR Insurance:MEDICARE PattersonDOB: Community [address] PART A BPolicy Number: [id number] [id number] Repository [address]Vjj: ([phone]) Date:2018-05-02 [phone] (HP) 05/02/2018 Secondary Juan A [place] Insurance:MEDICAL PattersonDOB: [facility] [id number] Hospital Number: Repository [id number] Date:8270-14-00WH [address] [address]BW: 05/02/2018 Tertiary NOT GIVENUNK [place] Insurance:SELF PAY [facility] Number: Effective Repository Date:2018-05-02 04/27/2018 Juan A Primary Juan A [place] [id number] TR Insurance:MEDICARE PattersonDOB: Community [address] PART A BPolicy Number: [id number] [id number] Repository [address]Ggo: ([phone]) Date:2018-04-25 [phone] () 04/27/2018 Secondary Juan A [place] Insurance:MEDICAL PattersonDOB: [facility] [id number] Hospital Number: Repository [id number] Date:9517-89-52BT[address] [address]VH: 04/27/2018 Tertiary NOT GIVENUNK [place] Insurance:SELF PAY [facility] Number: Effective Repository Date:2018-04-27 04/25/2018 Juan A Primary Juan A [place] [id number] TR Insurance:MEDICARE PattersonDOB: Community [address] PART A BPolicy Number: [id number] [id number] Repository [address]Baq: (330) Date:2018-04-25 [phone] () 04/25/2018 Secondary Juan A [place] Insurance:MEDICAL PattersonDOB: [facility] [id number] Hospital Number: Repository [id number] Date:7916-94-88ZB[address] [address]MS: 04/25/2018 Tertiary NOT GIVENUNK [place] Insurance:SELF PAY [facility] Number: Effective Repository Date:2018-04-25 03/18/2018 Juan A Primary Juan A [place] [id number] TR Insurance:MEDICARE PattersonDOB: Community [address] PART A BPolicy Number: [id number] [id number] Repository [address]Iar: ([phone]) Date:2018-03-14 [phone] () 03/18/2018 Secondary Juan A [place] Insurance:MEDICAL PattersonDOB: [facility] [id number] Hospital Number: Repository [id number] Date:7583-69-54RU[address] [address]HL: 03/18/2018 Tertiary NOT GIVENUNK [place] Insurance:SELF PAY [facility] Number: Effective Repository Date:2018-03-14 03/14/2018 Juan A Primary Juan Ocampo [id number] TR Insurance:MEDICARE PattersonDOB: [facility] [address] PART A BPolicy Number: [id number] [id number] Repository [address]Sfz: ([phone]) Date:2018-03-14 [phone] () 03/14/2018 Secondary Juan A [place] Insurance:MEDICAL PattersonDOB: [facility] [id number] Hospital Number: Repository [id number] Date:9474-12-59CV[address] [address]PX: 03/14/2018 Tertiary NOT GIVENUNK [place] Insurance:SELF PAY [facility] Number: Effective Repository Date:2018-03-14 03/14/2018 Juan A Primary Juan [facility] Insurance:MEDICARE PattersonDOB: [address] PART A BPolicy Number: [id number] Hospital [address]Jrv: (765) [id number] Repository [phone] () Date:2018-03-14 03/14/2018 Secondary Juan A [place] Insurance:MEDICAL PattersonDOB: [facility] [id number] Hospital Number: Repository [id number] Date:2983-63-26XB[address] [address]AH: 03/14/2018 Tertiary NOT GIVENUNK [place] Insurance:SELF PAY [facility] Number: Effective Repository Date:2018-03-14 02/07/2018 JUAN Primary [facility] PATTERSONDOB: Insurance:MEDICARE PATTERSONDOB: [facility] [id number] BOX PART BPolicy Number: [id number] Repository 55 [address] [id number] [address] [place] [address] Date:2018-02-07 [place], [place] [address]Tdo: [phone] [id number]: () Name:[facility] [phone] Administrators LLCPO ()Tel: 000) [address] [address]Lwfcikxse, [place] 000[address] (WP) [address]KZ: 02/07/2018 [facility] Insurance:MEDICAL PATTERSONDOB: [facility] 6018Policy [id number] Repository Number: [address] [id number] [address] [place] [address] Date:2018-02-07 [address]Djb: [phone] [id number] [phone] Name:BPO BOX (HP)Tel: [phone], [place] 000[address] (WP) [address]MS:
== END ==
PROVIDERS: Family Provider Family Medicine; PCP Family Medicine; Referring Provider Urology; Visit Provider Urology
DX: N20.0 Calculus of kidney (principal)
CPT/HCPCS: 74018

== ENCOUNTER → 2019-11-09 09:58 | Outpatient (CLI) | payer MEDICARE, OTHER, SELFPAY ==
--- NOTE | 2019-11-09 10:03 | RAD_ITS ---
STUDY: X-RAY - ABDOMEN/PELVIS REASON FOR EXAM: Male, 74 years old. Kidney stones TECHNIQUE: Single AP view of the abdomen / pelvis. COMPARISON: 11/01/2018 FINDINGS: Normal visualized lung bases. There is an unremarkable bowel gas pattern. There is no demonstrated free abdominal air. Calcifications projecting over the bilateral renal shadows similar in size and number since the prior study. There are calcified phleboliths in the pelvis. Normal visualized osseous structures. RAD/Abdomen Single View IMPRESSION: Similar bilateral nephrolithiasis. Electronically Signed: Thai Rubin MD ([place]) at 16:50 EST , Service support ,
== END ==
PROVIDERS: Family Provider Family Medicine; PCP Family Medicine; Referring Provider Urology; Visit Provider Urology
DX: N20.0 Calculus of kidney (principal)
CPT/HCPCS: 74018

== ENCOUNTER → 2021-03-20 10:48 | Outpatient (CLI) | payer MEDICARE, OTHER, SELFPAY ==
--- NOTE | 2021-03-20 11:00 | RAD_ITS ---
STUDY: X-RAY - ABDOMEN/PELVIS REASON FOR EXAM: Male, 75 years old. KIDNEY STONE TECHNIQUE: Single AP view of the abdomen / pelvis. COMPARISON: Comparison is made with prior study dated 11/09/2019. FINDINGS: There is an abundance of fecal material throughout the colon. Once again, there are multiple tiny bilateral renal calculi suggestive of bilateral medullary sponge kidneys. There has been essentially no change. Surgical clips are seen in the pelvis most likely secondary to prior prostate surgery. There are mild degenerative changes of the visualized lumbar spine. RAD/Abdomen Single View IMPRESSION: Stable bilateral intrarenal calculi suggestive of bilateral medullary sponge kidney. Electronically Signed: Mohinder Bermudez MD at 11:07 EDT , Service support ,
[2021-03-20 12:01] LABS: Anion Gap 2 (5-15); BUN 27 mg/dL (7-18); Calcium,Total 9.3 mg/dL (8.5-10.1); Chloride 106 mmol/L (98-107); Creatinine, Serum 1.23 mg/dL (0.70-1.30); EST Glomerular Filtration Rate 61 mL/min (>60); Est Glom Filt Rate - Afr Amer 74 mL/min (>60); Glucose 91 mg/dL (74-106); PSA,Total - Annual Screen 5.36 ng/mL (0.00-4.00); Potassium 4.1 mmol/L (3.5-5.1); Sodium Level 138 mmol/L (136-145)
== END ==
PROVIDERS: PCP Family Medicine; Referring Provider Urology; Visit Provider Urology
DX: Z12.5 Encounter for screening for malignant neoplasm of prostate (principal); N20.0 Calculus of kidney
CPT/HCPCS: 36415; 74018; 80048; 84153; G0103

== ENCOUNTER → 2024-03-30 | Outpatient (CLI) | payer MEDICARE, OTHER, SELFPAY ==
[2024-03-30 15:47] LABS: PSA,Total- Diagnostic 6.96 ng/mL (0.0-4.0)
== END | disposition home or self-care (01) ==
LOC: LAB 13:40
PROVIDERS: PCP Family Medicine; Referring Provider Urology; Visit Provider Urology
DX: R97.20 Elevated prostate specific antigen [PSA] (principal)
CPT/HCPCS: 36415; 84153

== ENCOUNTER 2025-06-28 14:24 | Outpatient (CLI) | payer MEDICARE, OTHER, SELFPAY ==
[2025-06-28 16:16] LABS: PSA,Total- Diagnostic 6.57 ng/mL (0.00-4.00)
== END 2025-06-28 23:59 | disposition home or self-care (01) ==
LOC: LAB 14:25
PROVIDERS: PCP Family Medicine; Referring Provider Urology; Visit Provider Urology
DX: R97.20 Elevated prostate specific antigen [PSA] (principal)
CPT/HCPCS: 36415; 84153